=== PATIENT | male | born 2005 | race Caucasian/White ===

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

== ENCOUNTER 2024-04-21 18:13 | Emergency (ER) | payer MEDICAID ==
[~2024-04-21] VITALS: Ht 175.3 cm; Wt 66.8 kg
[2024-04-21 18:39] VITALS: BP 148/91; PULSE 86; RESP 16; TEMP 98.6; O2SAT 96
== END 2024-04-21 21:13 | disposition left against medical advice (07) ==
LOC: ER 18:13
DX: S09.8XXA Other specified injuries of head, initial encounter (principal); Z53.21 Procedure and treatment not carried out due to patient leaving prior to being seen by health care provider; X58.XXXA Exposure to other specified factors, initial encounter; Y93.89 Activity, other specified; Y92.89 Other specified places as the place of occurrence of the external cause; Y99.8 Other external cause status

== ENCOUNTER 2025-05-30 02:17 | Emergency (ER) | payer MEDICAID, OTHER ==
[~2025-05-30] VITALS: Ht 180.3 cm; Wt 52.2 kg
[~2025-05-30 02:17] MED LIST changes: +ONDA-243 PO; -ONDA4TAB12 PO
[2025-05-30 02:41] VITALS: TEMP 98.2
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
[2025-05-30] MEDS: fentaNYL/PF 50MCG/1 ML 2ML syringe IV ONE ×3 (02:44→06:30)
[2025-05-30] MEDS: ondansetron/PF 4mg/2ml inj IV ONE (02:44)
[2025-05-30 03:05] LABS: MEAN PLATELET VOLUME 9.2 FL (7.4-10.4); RED CELL DISTRIBUTION WIDTH 12.9 % (11.5-14.5)
[2025-05-30] MEDS: midazolam 1 mg/ML 2ml injection IV ONE (03:08)
[2025-05-30 03:14] LABS: CREATININE 1.13 MG/DL (0.60-1.10); ETHANOL 124 MG/DL (<10); TOTAL CARBON DIOXIDE 18.6 MMOL/L (24-32); eCRCL 76 ML/MIN; eGFR 82 ML/MIN
[2025-05-30] MEDS ORDERED: iohexol 300mg/ml 100ml inj. ONE (03:27)
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
[2025-05-30] MEDS ORDERED: morphine 4 MG/ML inj SYRINge IV PRN (06:25)
[2025-05-30] MEDS: bacitracin 15gm ointment TP ONE (07:10)
[2025-05-30] MEDS: BUPIVAcaine 0.5% W/EPI /PF 30ml vial IJ ONE (07:34)
[2025-05-30] MEDS: LIDOcaine 1% W/epiNEPHrine 1:100,000 20ml vial SQ ONE (07:56)
[2025-05-30] MEDS ORDERED: HYDR-3965 PO (08:21)
[2025-05-30 08:32] VITALS: BP 118/70; PULSE 82; RESP 22; O2SAT 99
== END 2025-05-30 08:40 | disposition home or self-care (01) ==
LOC: ER 02:18
DX: S42.411A Displaced simple supracondylar fracture without intercondylar fracture of right humerus, initial encounter for closed fracture (principal); R51.9 Headache, unspecified; F10.129 Alcohol abuse with intoxication, unspecified; Z88.8 Allergy status to other drugs, medicaments and biological substances; Y90.6 Blood alcohol level of 120-199 mg/100 ml; V29.99XA Rider (driver) (passenger) of other motorcycle injured in unspecified traffic accident, initial encounter; Y93.55 Activity, bike riding; Y92.89 Other specified places as the place of occurrence of the external cause; Y99.8 Other external cause status
CPT/HCPCS: 12001; 36415; 70450; 71045; 72125; 73060; 73090; 74177; 80053; 80320; 83690; 85025; 96374; 96375; 96376; 99285; J2250; J2270; J2405; J3010; J7030; L0172; Q9967; A4565; A6258; A6446; A6449